=== PATIENT | female | born 1935 | race Caucasian/White ===

== ENCOUNTER 2016-11-15 12:19 | Emergency (ER) | payer MEDICARE ==
--- NOTE | 2016-11-15 12:56 | ER Document Report ---
ED General - General Chief Complaint: Chest Pain Stated Complaint: CHEST PAIN Time seen by provider: 12:55 Mode of Arrival: Medic Information source: Patient Notes: 81-year-old female who reports 3 month history of midsternal chest heaviness not associated with eating or exertion. She reports over the past month she also feels discomfort going up into both sides of her jaw. He reports symptoms for typically come on in the afternoon and go away before nighttime but it was still present this morning which she woke up and this prompted her to see her physician Monae whose name she does not recall. The physician referred her to the emergency department out of concern this might be a cardiac etiology. She reported relief of her chest and jaw discomfort with aspirin and Nitropaste in route. He reports no associated shortness of breath, diaphoresis, nausea, or vomiting. She reports no prior cardiac workup. He hasn't seen physician for these symptoms previously. She reports no recent travel history. She does report she has some blood on toilet paper when she wipes last night and this morning. She denies hematemesis or melena. Physical Exam: General: Alert, appears well. HEENT: Normocephalic. Atraumatic. PERRLA. Extraocular movements intact. Oropharynx clear. Neck: Supple. Non-tender. Respiratory: No respiratory distress. Clear and equal breath sounds bilaterally. Nontender to palpation Cardiovascular: Regular rate and rhythm. Abdominal: Normal Inspection. Soft, non-tender. No distension. Normal Bowel Sounds. Back: Non-tender. No deformity or step off. Extremities: Moves all four extremities. Upper extremities: Normal inspection. Non-tender. Normal color. Normal ROM. Normal temperature. Lower extremities: Normal inspection. Non-tender. No edema. Normal color. Normal ROM. Normal temperature. 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 Normal Mood. Skin: Warm. Dry. Normal color. TRAVEL OUTSIDE OF THE [place] IN LAST 30 DAYS: No - Related Data Allergies/Adverse Reactions: No Known Allergies Allergy (Unverified 10/12/11 08:48) Past Medical History - Social History Smoking Status: Former Smoker Family History: Other - Father brother at early age unknown cause - Past Medical History Cardiac Medical History: Reports: Hx Hypertension Denies: Hx Coronary Artery Disease, Hx Heart Attack Pulmonary Medical History: Reports: Hx Pneumonia - as child Denies: Hx Asthma, Hx Bronchitis Comment Only: Hx COPD - Unsure Neurological Medical History: Denies: Hx Cerebrovascular Accident, Hx Seizures Endocrine Medical History: Reports: Hx Diabetes Mellitus Type 2 Musculoskeltal Medical History: Reports Hx Arthritis Past Surgical History: Denies: Hx Pacemaker - Immunizations Hx Diphtheria, Pertussis, Tetanus Vaccination: No Review of Systems - Review of Systems Constitutional: denies: Chills, Fever EENT: denies: Ear pain, Throat pain Cardiovascular: See HPI Respiratory: denies: Cough, Short of breath Gastrointestinal: denies: Abdominal pain, Diarrhea Genitourinary: denies: Burning, Dysuria Female Genitourinary: denies: Musculoskeletal: denies: Back pain Hematologic/Lymphatic: denies: Swollen glands Neurological/Psychological: denies: Weakness, Numbness Physical Exam - Vital signs Vitals: Resp Pulse Ox 23 H 95 11/15/16 12:36 11/15/16 12:36 Course - Re-evaluation Re-evalutation: 11/15/16 16:00 Patient remains pain-free during her stay in the emergency department. Her EKG is concerning for inferior ischemia and her troponin is positive. I'm concerned this represents non-ST elevation [place]. Dr. Butts at [facility] has accepted patient in transfer. I'm informed that this patient is #2 on their list ago. [facility] was also contacted and they're wait time is at least 12 deep with no anticipated beds within the next 24 hours. - Vital Signs Vital signs: Temp Pulse Resp BP Pulse Ox 98.1 F 13 152/130 H 96 11/15/16 13:03 11/15/16 13:03 11/15/16 13:03 11/15/16 13:03 - Laboratory Result Diagrams: 11/15/16 12:35 11/15/16 12:35 Laboratory results interpreted by me: 11/15/16 11/15/16 11/15/16 12:35 12:35 12:35 WBC 12.1 H Seg Neutrophils % 78.8 H Lymphocytes % 12.0 L Absolute Neutrophils 9.5 H Carbon Dioxide 32 H Est GFR ( Amer) 55 L Est GFR (Non-Af Amer) 45 L Glucose 112 H Total Bilirubin 1.5 H CK-MB (CK-2) 6.06 H - Diagnostic Test Radiology reviewed: Image reviewed, Reports reviewed - EKG Interpretation by Me Additional EKG results interpreted by me: 11/15/16 12:55 EKG reviewed by myself shows sinus rhythm at 65 ST depression seen in 2, F, V4 56 Discharge - Discharge Clinical Impression: Non-ST elevation (NSTEMI) myocardial infarction Condition: Fair Disposition: [facility]
[2016-11-15 13:09] LABS: ABSOLUTE EOSINOPHILS # (AUTO) 0.2 10^3/uL (0.0-0.6); ABSOLUTE LYMPHOCYTES (AUTO) 1.4 10^3/uL (0.5-4.7); ABSOLUTE MONOCYTES (AUTO) 0.9 10^3/uL (0.1-1.4); ABSOLUTE NEUT (AUTO) 9.5 10^3/uL (1.7-8.2); BASOPHILS % (AUTO) 0.3 % (0-2); EOSINOPHILS % (AUTO) 1.3 % (0-6); HEMATOCRIT 37.6 % (36.0-47.0); HEMOGLOBIN 12.2 g/dL (12.0-15.5); MEAN CORPUSCULAR HGB CONC 32.5 g/dL (32.0-36.0); MEAN CORPUSCULAR VOLUME 92 fl (80-97); MONOCYTES % (AUTO) 7.6 % (3-13); RED BLOOD COUNT 4.07 10^6/uL (3.72-5.28); RED CELL DISTRIBUTION WIDTH 13.8 % (11.5-14.0); SEGMENTED NEUTROPHILS % (AUTO) 78.8 % (42-78); WHITE BLOOD COUNT 12.1 10^3/uL (4.0-10.5)
[2016-11-15 13:20] LABS: ALANINE AMINOTRANSFERASE 25 U/L (9-52); ALBUMIN 3.9 g/dL (3.5-5.0); ALKALINE PHOSPHATASE 89 U/L (38-126); ANION GAP 6 (5-19); ASPARTATE AMINO TRANSFERASE 26 U/L (14-36); BILIRUBIN,TOTAL 1.5 mg/dL (0.2-1.3); BLOOD UREA NITROGEN 18 mg/dL (7-20); CALCIUM 9.5 mg/dL (8.4-10.2); CARBON DIOXIDE 32 mmol/L (22-30); CHLORIDE 104 mmol/L (98-107); CREATINE KINASE 60 U/L (30-135); CREATININE RESULT 1.15 mg/dL (0.52-1.25); GLUCOSE 112 mg/dL (75-110); LIPASE 171.5 U/L (23-300); POTASSIUM 4.9 mmol/L (3.6-5.0); SODIUM 141.6 mmol/L (137-145); TOTAL PROTEIN 6.5 g/dL (6.3-8.2)
[2016-11-15 13:32] LABS: CREATINE KINASE MB 6.06 ng/mL (<4.55)
[2016-11-15 13:34] LABS: TROPONIN I 0.66 ng/mL
[2016-11-15] MEDS ORDERED: LANSOPRAZOLE 30 MG TAB.RAP.DR PO ONE (16:06)
[2016-11-15] MEDS: ENOXAPARIN SODIUM INJ 100 MG/1 ML DISP.SYRIN SUBCUT SCH (17:39)
[2016-11-15] MEDS ORDERED: NITROGLYCERIN 0.4 MG/TAB 25 TAB/BOTTLE SL PRN (19:05)
--- NOTE | 2016-11-15 21:47 | EKG REPORT ---
SEVERITY:- ABNORMAL ECG - SINUS RHYTHM NONSPECIFIC REPOL ABNORMALITY, DIFFUSE LEADS : Confirmed by: Sang Rivero 15-Nov-2016 21:45:43
[2016-11-15] MEDS ORDERED: METOPROLOL TARTRATE 25 MG TABLET PO SCH (22:00)
[2016-11-15] MEDS ORDERED: ATORVASTATIN CALCIUM 10 MG TABLET PO SCH (22:00)
[2016-11-15] MEDS ORDERED: NITROGLYCERIN/D5W 250 ML IV PRN (23:49)
[2016-11-16 00:41] LABS: ABSOLUTE BASOPHILS # (AUTO) 0.1 10^3/uL (0.0-0.2); ABSOLUTE EOSINOPHILS # (AUTO) 0.1 10^3/uL (0.0-0.6); ABSOLUTE LYMPHOCYTES (AUTO) 1.7 10^3/uL (0.5-4.7); ABSOLUTE MONOCYTES (AUTO) 1.2 10^3/uL (0.1-1.4); ABSOLUTE NEUT (AUTO) 14.7 10^3/uL (1.7-8.2); BASOPHILS % (AUTO) 0.6 % (0-2); EOSINOPHILS % (AUTO) 0.5 % (0-6); HEMATOCRIT 40.6 % (36.0-47.0); HEMOGLOBIN 13.4 g/dL (12.0-15.5); HGB HCT DIFFERENCE -0.4; LYMPHOCYTES % (AUTO) 9.6 % (13-45); MEAN CORPUSCULAR HEMOGLOBIN 30.5 pg (27.0-33.4); MEAN CORPUSCULAR HGB CONC 32.9 g/dL (32.0-36.0); MEAN CORPUSCULAR VOLUME 93 fl (80-97); MONOCYTES % (AUTO) 6.6 % (3-13); RED BLOOD COUNT 4.38 10^6/uL (3.72-5.28); RED CELL DISTRIBUTION WIDTH 13.8 % (11.5-14.0); SEGMENTED NEUTROPHILS % (AUTO) 82.7 % (42-78); WHITE BLOOD COUNT 17.8 10^3/uL (4.0-10.5)
[2016-11-16] MEDS: FAMOTIDINE 20 MG TABLET PO SCH ×2 (00:50→10:48)
--- NOTE | 2016-11-16 00:55 | ER Document Report ---
ED General - General Chief Complaint: Chest Pain Stated Complaint: CHEST PAIN Mode of Arrival: Medic TRAVEL OUTSIDE OF THE [place] IN LAST 30 DAYS: No - HPI Patient complains to provider of: chest pain NSTEMI GI Bleed CHF Notes: Patient was seen and evaluated here in ER currently waiting transport to [facility] for a NSTEMI. Patient's troponins have been 0.6 and 1.7. Notified by nursing staff upon patient having a bloody bowel movement patient became pale diaphoretic short of breath. Patient was assisted back to the bed from her bedside commode. During this time patient did become very hypoxic with O2 saturation 70. Patient was transitioned from a nasal cannula to nonrebreather. During this process patient denied any chest pain. Once reevaluated patient patient was also found to be very hypertensive with blood pressure of 220/100. Patient became tachypneic with audible rales heard. - Related Data Allergies/Adverse Reactions: No Known Allergies Allergy (Unverified 10/12/11 08:48) Past Medical History - General Information source: Patient - Social History Smoking Status: Former Smoker Family History: Other - Father brother at early age unknown cause - Past Medical History Cardiac Medical History: Reports: Hx Hypercholesterolemia, Hx Hypertension Denies: Hx Coronary Artery Disease, Hx Heart Attack Pulmonary Medical History: Reports: Hx Pneumonia - as child Denies: Hx Asthma, Hx Bronchitis Comment Only: Hx COPD - Unsure Neurological Medical History: Denies: Hx Cerebrovascular Accident, Hx Seizures Endocrine Medical History: Reports: Hx Diabetes Mellitus Type 2 Musculoskeltal Medical History: Reports Hx Arthritis Surgical Hx: Negative Past Surgical History: Denies: Hx Pacemaker - Immunizations Hx Diphtheria, Pertussis, Tetanus Vaccination: No Review of Systems - Review of Systems Constitutional: No symptoms reported EENT: No symptoms reported Cardiovascular: Chest pain Respiratory: Short of breath Gastrointestinal: Rectal bleeding Genitourinary: No symptoms reported Female Genitourinary: No symptoms reported Musculoskeletal: No symptoms reported Skin: No symptoms reported Hematologic/Lymphatic: No symptoms reported Neurological/Psychological: No symptoms reported -: Yes All other systems reviewed and negative Physical Exam - Vital signs Vitals: Resp Pulse Ox 23 H 95 11/15/16 12:36 11/15/16 12:36 Interpretation: Hypertensive, Hypoxic, Tachypneic - General General appearance: Appears well, Alert - HEENT Head: Normocephalic, Atraumatic Eyes: Normal Pupils: PERRL - Respiratory Respiratory status: No respiratory distress Chest status: Nontender Breath sounds: Rales Chest palpation: Normal - Cardiovascular Rhythm: Regular Heart sounds: Normal auscultation Murmur: No - Abdominal Inspection: Normal Distension: No distension Bowel sounds: Normal Tenderness: Nontender Organomegaly: No organomegaly - Back Back: Normal, Nontender - Extremities General upper extremity: Normal inspection, Nontender, Normal color, Normal ROM , Normal temperature General lower extremity: Normal inspection, Nontender, Normal color, Normal ROM , Normal temperature, Normal weight bearing. No: Wojciech's sign - Neurological Neuro grossly intact: Yes Cognition: Normal Sensory: Normal - Psychological Associated symptoms: Normal affect, Normal mood - Skin Skin Temperature: Warm Skin Moisture: Dry Skin Color: Normal Course - Re-evaluation Re-evalutation: 11/16/16 01:[address] segment depressions to 3 aVF V5 V6 and minimal elevation AvR. I did repeat patient's troponin at this episode. Patient was placed back in the bed placed on BiPAP placed on a nitro drip did give a bolus of nitros of 600 mics to help alleviate her hypertension. Patient seemed to respond to these modalities well. 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 Aguirre cardiology Dr. Marquis hospitalist. Patient was accepted to [facility]. 11/16/16 01:17 Signed out overnight doc. Repeat troponin did return decreasing. - Vital Signs Vital signs: Temp Pulse Resp BP Pulse Ox 98.1 F 28 H 204/97 H 93 11/15/16 13:03 11/16/16 01:01 11/16/16 01:01 11/16/16 01:01 - Laboratory Result Diagrams: 11/16/16 00:05 11/15/16 12:35 Laboratory results interpreted by me: 11/15/16 11/15/16 11/15/16 12:35 12:35 12:35 WBC 12.1 H Seg Neutrophils % 78.8 H Lymphocytes % 12.0 L Absolute Neutrophils 9.5 H Carbon Dioxide 32 H Est GFR ( Amer) 55 L Est GFR (Non-Af Amer) 45 L Glucose 112 H Total Bilirubin 1.5 H CK-MB (CK-2) 6.06 H 11/16/16 11/16/16 00:05 00:05 WBC 17.8 H Seg Neutrophils % 82.7 H Lymphocytes % 9.6 L Absolute Neutrophils 14.7 H Carbon Dioxide Est GFR ( Amer) Est GFR (Non-Af Amer) Glucose Total Bilirubin CK-MB (CK-2) 4.62 H Critical Care Note - Critical Care Note Total time excluding time spent on procedures (mins): 35 Comments: Multiple evaluations for managing nitro drip hypoxia discussing transferring etiologies. Discharge - Discharge Clinical Impression: Non-ST elevation [place] (NSTEMI) Condition: Fair Disposition: [facility] Referrals: MARY ALICE BACK MD [Primary Care Provider] - Follow up as needed
[2016-11-16 00:56] LABS: CREATINE KINASE MB 4.62 ng/mL (<4.55); TROPONIN I 1.16 ng/mL
[2016-11-16 01:06] LABS: PROTHROMBIN TIME 13.8 SEC (11.4-15.4)
[2016-11-16 01:07] LABS: PARTIAL THROMBOPLASTIN TIME 35.3 SEC (23.5-35.8)
[2016-11-16 07:23] LABS: CREATINE KINASE MB 5.96 ng/mL (<4.55); TROPONIN I 3.18 ng/mL
[2016-11-16] MEDS ORDERED: BENAZEPRIL HCL 5 MG TABLET PO SCH (10:00)
[2016-11-16] MEDS ORDERED: ASPIRIN 325 MG TABLET, ENT COATED PO SCH (10:00)
[2016-11-16] MEDS ORDERED: NORMAL SALINE 1000 ML 1,000 ML IV ONE (10:34)
--- NOTE | 2016-11-16 10:34 | ER Document Report ---
Doctor's Note Notes: 11/16/16 10:34 Patient has been reevaluated, troponins have been elevated, she is resting comfortably in no distress since she has not been fed I will start her on a very low dose of fluids 11/16/16 16:19 Patient was initially accepted by both [facility] and [facility], it appears [facility] transfers here, patient will be going to [facility] at this time
[2016-11-16] MEDS: ENOXAPARIN SODIUM INJ 100 MG/1 ML DISP.SYRIN SUBCUT SCH (10:52)
[2016-11-16 14:43] LABS: CREATINE KINASE MB 4.37 ng/mL (<4.55); TROPONIN I 2.97 ng/mL
[2016-11-16 15:59] VITALS: BP 200/86
--- NOTE | 2016-11-16 23:56 | EKG REPORT ---
SEVERITY:- ABNORMAL ECG - SINUS RHYTHM PROBABLE LEFT ATRIAL ABNORMALITY NONSPECIFIC REPOL ABNORMALITY, DIFFUSE LEADS BORDERLINE PROLONGED QT INTERVAL : Confirmed by: Sang Rivero 16-Nov-2016 23:55:42
--- NOTE | 2016-11-16 23:56 | EKG REPORT ---
SEVERITY:- ABNORMAL ECG - SINUS RHYTHM PROBABLE LEFT ATRIAL ABNORMALITY PROBABLE LVH WITH SECONDARY REPOL ABNRM ST DEPRESSION, CONSIDER ISCHEMIA, INF LEADS BORDERLINE PROLONGED QT INTERVAL : Confirmed by: Sang Rivero 16-Nov-2016 23:55:59
== END 2016-11-16 16:44 | disposition short-term general hospital (02) ==
LOC: ER 12:19
DX: I21.4 Non-ST elevation (NSTEMI) myocardial infarction (principal); I10 Essential (primary) hypertension; R19.5 Other fecal abnormalities; R61 Generalized hyperhidrosis; R23.1 Pallor; R06.02 Shortness of breath; R09.02 Hypoxemia; R00.0 Tachycardia, unspecified; R09.89 Other specified symptoms and signs involving the circulatory and respiratory systems; E11.9 Type 2 diabetes mellitus without complications; Z75.1 Person awaiting admission to adequate facility elsewhere; Z87.891 Personal history of nicotine dependence
CPT/HCPCS: 93005 ×2; 99285; 96372; 96365; 96366; 36415; 82553; 82550; 83690; 85025; 85610; 85730; 82272; 80053; 84484; 83880; 71010; 93010 ×2; 94660; A9270 ×4; J3490; J7030; J1650 ×2